=== PATIENT | male | born 1975 | race Caucasian/White ===

== ENCOUNTER 2020-02-28 12:35 | Outpatient (CLI) | payer OTHER, SELFPAY ==
--- NOTE | 2020-02-28 12:39 | USCV_ITS ---
Srinath Renteria Age: 44 Gender: M : 1975 Exam Date: 02/28/2020 12:50 Ordering Phys: Luke Rao MD Technologist: Cat Knox [place] [facility] [place]ication: TACH BP: 102 / 60 HR: 92 Rhythm: TACHYCARDIA Technical Quality: Fair MEASUREMENTS (Male / Female) Normal Values 2D ECHO LV Diastolic Diameter PLAX 2.7 cm 4.2 - 5.9 / 3.9 - 5.3 cm LV Systolic Diameter PLAX 1.4 cm LV Chamber Size 3.9 cm IVS Diastolic Thickness 1.6 cm 0.6 - 1.0 / 0.6 - 0.9 cm IVS Systolic Thickness 2.4 cm LVPW Diastolic Thickness 1.5 cm 0.6 - 1.0 / 0.6 - 0.9 cm LVPW Systolic Thickness 1.8 cm RV Chamber Size 2.7 cm LV Ejection Fraction 2D Teich 82.1 % LV Ejection Fraction MOD 2C 59.6 % LV Ejection Fraction 2C AL 60.7 % LA Width 3.0 cm LA Height 6.2 cm RA Width 3.0 cm RA Height 6.1 cm M-MODE LV Diastolic Diameter MM 5.3 cm 4.2 - 5.9 / 3.9 - 5.3 cm LV Systolic Diameter MM 3.5 cm LV Ejection Fraction MM Teich 63.4 % IVS Diastolic Thickness MM 1.3 cm 0.6 - 1.0 / 0.6 - 0.9 cm IVS Systolic Thickness MM 1.6 cm LVPW Diastolic Thickness MM 1.1 cm 0.6 - 1.0 / 0.6 - 0.9 cm LVPW Systolic Thickness MM 1.4 cm FINDINGS Left Ventricle Normal left ventricular cavity size. Normal left ventricular systolic function. Left ventricular ejection fraction is estimated at 60%. No diagnostic regional wall motion abnormalities. Right Ventricle Normal right ventricular size and systolic function. Right Atrium Normal right atrial size. Normal-sized inferior vena cava. Right atrial pressure estimated at 3 mmHg. Left Atrium Normal left atrial size. Mitral Valve Structurally normal mitral valve. Aortic Valve Aortic valve not well visualized. Tricuspid Valve Structurally normal tricuspid valve. Pulmonic Valve Pulmonary valve not visualized. Pericardium No pericardial effusion. Aorta Aorta not well visualized. CONCLUSIONS 1. This is a limited 2D study only. Patient was in atrial fibrillation with rapid ventricular response throughout the study. 2. Normal left ventricular cavity size. Normal left ventricular systolic function. Left ventricular ejection fraction is estimated at 60%. No diagnostic regional wall motion abnormalities. 3. Normal right ventricular size and systolic function. 4. Complete study is recommended once patient's heart rate is well controlled. Cindy Ortez MD (Electronically Signed) Final Date: 28 February 2020 14:04 S
== END 2020-02-28 12:36 | disposition home or self-care (01) ==
LOC: RAD 12:37
PROVIDERS: PCP Family Medicine; Visit Provider Family Medicine
DX: I48.91 Unspecified atrial fibrillation (principal); R00.0 Tachycardia, unspecified
CPT/HCPCS: 93308

== ENCOUNTER → 2020-03-11 14:58 | Outpatient (BNVA) | payer OTHER, SELFPAY | PROVIDERS: PCP Family Medicine; Visit Provider Internal Medicine Cardiovascular Disease | DX: I48.91 Unspecified atrial fibrillation (principal) | CPT/HCPCS: 84439; 84443; 84481 ==

== ENCOUNTER 2020-03-31 08:30 | Outpatient (CLI) | payer OTHER, SELFPAY ==
--- NOTE | 2020-03-31 08:34 | USCV_ITS ---
Srinath Renteria Age: 44 Gender: M : 1975 Exam Date: 03/31/2020 09:07 Ordering Phys: Cindy Ortez MD ([email or web address]) Technologist: Juanita Garner Exam Location: [facility] [place] Indication: atrial fibrillation BP: / HR: 56 Rhythm: Sinus Technical Quality: Adequate MEASUREMENTS (Male / Female) Normal Values 2D ECHO LV Diastolic Diameter PLAX 4.1 cm 4.2 - 5.9 / 3.9 - 5.3 cm LV Systolic Diameter PLAX 2.1 cm IVS Diastolic Thickness 1.3 cm 0.6 - 1.0 / 0.6 - 0.9 cm IVS Systolic Thickness 1.9 cm LVPW Diastolic Thickness 1.2 cm 0.6 - 1.0 / 0.6 - 0.9 cm LVPW Systolic Thickness 1.8 cm LVOT Diameter 2.1 cm LV Ejection Fraction 2D Teich 81.5 % LV Ejection Fraction MOD 2C 59.3 % LV Ejection Fraction 2C AL 58.5 % LA Diameter 4.0 cm LA Width 3.8 cm LA Height 6.2 cm RA Width 2.8 cm RA Height 5.5 cm M-MODE LV Diastolic Diameter MM 6.7 cm 4.2 - 5.9 / 3.9 - 5.3 cm LV Systolic Diameter MM 4.1 cm LV Ejection Fraction MM Teich 68.7 % IVS Diastolic Thickness MM 1.8 cm 0.6 - 1.0 / 0.6 - 0.9 cm IVS Systolic Thickness MM 1.8 cm LVPW Diastolic Thickness MM 1.5 cm 0.6 - 1.0 / 0.6 - 0.9 cm LVPW Systolic Thickness MM 2.9 cm Aortic Annulus Diameter 3.4 cm LA Ao Ratio MM 1.2 MV E Point Septal Separation 1.4 cm DOPPLER AV Peak Velocity 130.0 cm/s LVOT Peak Velocity 119.0 cm/s AV Area Cont Eq vti 3.5 cm squared AV Area Cont Eq pk 3.3 cm squared MV Peak Velocity 69.0 cm/s MV Area PHT 3.0 cm squared Mitral E to A Ratio 0.9 MV E' Velocity 5.0 cm/s Mitral E to MV E' Ratio 10.9 Mitral E to LV E' Lateral Ratio 11.5 Mitral E to LV E' Septal Ratio 10.5 TR Peak Velocity 97.0 cm/s TR Peak Gradient 3.8 mmHg Right Atrial Pressure 3.0 mmHg Pulmonary Artery Systolic Pressu 6.8 mmHg PV Peak Velocity 95.0 cm/s RV Acceleration Time 0.1 s FINDINGS Left Ventricle Normal left ventricular size, systolic function and wall thickness, with no regional wall motion abnormalities. Left ventricular ejection fraction is estimated at 65 %. Normal diastolic function. Right Ventricle Normal right ventricular size and systolic function. Right ventricular systolic pressure 6.8 mmHg. Right Atrium Normal right atrial size. Left Atrium Normal left atrial size. Mitral Valve Structurally normal mitral valve. No mitral valve stenosis. Trace mitral valve regurgitation. Aortic Valve Structurally normal trileaflet aortic valve. No aortic valve stenosis. No aortic valve regurgitation. Tricuspid Valve Structurally normal tricuspid valve. No tricuspid valve stenosis. Trace tricuspid valve regurgitation. Pulmonic Valve Structurally normal pulmonic valve. No pulmonary valve stenosis. No significant pulmonary valve regurgitation. Pericardium No pericardial effusion. Normal sized inferior vena cava. Aorta Normal size aortic root and proximal ascending aorta. CONCLUSIONS 1. Normal left ventricular size, systolic function and wall thickness, with no regional wall motion abnormalities. Left ventricular ejection fraction is estimated at 65 %. Normal diastolic function. 2. No significant valvular abnormality. 3. Normal pulmonary artery pressure. 4. No pericardial effusion. Cindy Ortez MD (Electronically Signed) Final Date: 31 March 2020 19:25 S
== END 2020-03-31 08:31 | disposition home or self-care (01) ==
LOC: US 08:32
PROVIDERS: PCP Family Medicine; Visit Provider Internal Medicine Cardiovascular Disease
DX: I48.91 Unspecified atrial fibrillation (principal)
CPT/HCPCS: 93306

== ENCOUNTER 2022-02-23 06:58 | Outpatient (CLI) | payer OTHER, SELFPAY ==
[2022-02-23 07:02] VITALS: BMI 41.5
--- NOTE | 2022-02-23 07:25 | ECG_ITS ---
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 Interpretive Statements NAME OF STUDY: EXERCISE SESTAMIBI STRESS TEST INDICATION: afib, PROCEDURE: The baseline electrocardiogram showed normal sinus rhythm with normal ST-Ts poor R wave progression. Nonspecific T wave changes in the inferior leads. At the baseline, the patient's blood pressure was 122/79 mm Hg with a heart rate of 88. The patient exercised for 8 minutes and 20 seconds on a standard Himanshu protocol. Patient attained a maximum heart rate of 172 beats per minute(100% of the maximum predicted heart rate) with a blood pressure at the peak exercise of 205/77 mm Hg. The EKG at the peak exercise revealed no significant changes. Patient did not have any chest pain or any significant arrhythmis with the exercise Sestamibi was injected 1 minute prior to the peak exercise During the recovery phase, there were no new changes. Blood pressure at the end of the recovery phase was 110/80 mm Hg with a heart rate of 101 per minute. CONCLUSION: 1. No significant EKG changes with the [treadmill exercise 2. No exercise-induced chest pain or cardiac arrhythmia. Hypertensive response to exercise 3. Fair exercise tolerance, attained a maximum of 10.2 METs 4. Sestamibi/Sestamibi perfusion results pending; see separate report. Electronically Signed On 02-25-2022 11:53:59 CDT by Slava Miguel M.D. [id number]
--- NOTE | 2022-02-23 07:26 | NMCV_ITS ---
NM ashley perf SPECT r/s* [id number] Srinath Renteria Age: 46 Gender: M : 1975 Exam Date: 02/23/2022 08:14 Ordering Phys: Luke Rao MD Technologist: BRIDGET Georges Exam Location: [facility] Indications: PAROXYSMAL A FIB STRESS TEST Please see separate stress test report in [facility] for full findings IMAGE PROTOCOL Rest/Stress 1 Exercise Day Radiopharmaceutical Dose (mCi) Administration Site Administered by Rest: Tc-99m 10.9 IV BRIDGET Trivedi Sestamibi Stress:Tc-99m 33.0 IV BRIDGET Trivedi Sestamibi Rest: 23-Feb-2022 60 Discovery 630 Stress: 23-Feb-2022 30 Discovery 630 Radiopharmaceutical was injected at 90 % maximum heart rate. Images obtained in supine and prone position. SPECT RESULTS Technical Quality: Excellent Raw Data Analysis: Normal Image Corrections: No attenuation or motion correction applied Summed Stress Score: 2 Summed Rest Score: 3 Summed Difference Score: 1 PERFUSION FINDINGS Small areas of slightly decreased tracer uptake were noted in the inferior and apical regions. Subtle area of reversibility was noted in the mid inferior region FUNCTIONAL RESULTS (calculated via Gated SPECT) Stress Image LV EF (%): 73 Stress EDV (mL):139 TID: 0.73 Stress ESV (mL):37 FUNCTIONAL FINDINGS: Segmental wall motion analysis revealing no gross wall motion abnormalities IMPRESSIONS 1. Myocardial perfusion imaging revealing small areas of slightly decreased tracer uptake in the inferior and apical regions with a subtle area reversibility in the mid inferior region, suggestive of ischemia in the distribution of the right coronary artery. However because the inconsistency of the supine imaging, the reliability of this finding is questionable. 2. Normal LV ejection fraction 73%. 3. Segmental wall motion analysis revealing no gross wall motion abnormalities 4. Normal LV volume No similar previous studies are available for comparison Dr Slava Miguel MD [facility] (Electronically Signed) Final Date: 23 February 2022 13:58 S
[2022-02-23 09:01] VITALS: BP 114/78; PULSE 103
== END 2022-02-23 06:59 | disposition home or self-care (01) ==
PROVIDERS: PCP Family Medicine; Visit Provider Family Medicine
DX: I48.0 Paroxysmal atrial fibrillation (principal)
CPT/HCPCS: 78452; 93017; A9500

== ENCOUNTER 2022-03-17 15:30 | Emergency (ER) | payer OTHER, SELFPAY ==
[2022-03-17] VITALS (11 sets, daily range): BP systolic 116–146; BP diastolic 72–90; PULSE 61–80; RESP 12–21; TEMP 36.6; O2SAT 92–97
--- NOTE | 2022-03-17 16:00 | ECG_ITS ---
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 Measurements Intervals [place] Rate: 71 P: 21 FL: 191 QRS: 18 QRSD: 93 T: 25 QT: 378 QTc: 411 Interpretive Statements SINUS RHYTHM No previous ECG available for comparison Electronically Signed On 03-17-2022 18:37:08 CDT by Cindy Ortez M.D. [id number]
--- NOTE | 2022-03-17 16:00 | XRR_ITS ---
PROCEDURE INFORMATION: Exam: XR Chest Exam date and time: 03/17/2022 4:08 PM Age: 46 years old Clinical indication: Pain; Angina pectoris; Additional info: Cp TECHNIQUE: Imaging protocol: Radiologic exam of the chest. Views: 1 view. COMPARISON: No relevant prior studies available. FINDINGS: Lungs: Shallow lung volumes. Slight horizontal stranding in each lung base. No consolidation. Pleural spaces: No pneumothorax or apparent pleural fluid. Heart/Mediastinum: Heart size within normal limits. Bones/joints: No suggestion of acute bony disease. XR/XR chest 1V portable [id number] IMPRESSION: Shallow inspiration and probable slight atelectasis in the lung bases.
--- NOTE | 2022-03-17 16:11 | W.ED.CHESTPA ---
HPI - Chest Pain General: Chief Complaint: Chest Pain Stated Complaint: chest pain Time Seen by Provider: 03/17/22 15:46 Source: patient and family (Spouse) Mode of arrival: ambulatory Limitations: no limitations History of Present Illness: This patient made his way to the emergency department accompanied by his spouse this afternoon because of chest pain symptoms. Currently has been having some central chest pain off and on for the last 2 weeks. He apparently had an umbilical hernia repaired about 10 days ago but the symptoms preceded that operation by several days. He states he has occasionally had episodes that last for short period of time since then but yesterday he had a prolonged period and today has had a prolonged period of symptoms. He states that there is central in nature he does vomit with the pain but it does not seem to immediately relieve the pain. No particular activity brings the pain on. He states that he has not been short of breath associated with the symptoms. He has no known history of cardiovascular disease. He states he since his surgery has been eating normally having normal bowel movements etc. He is not any recent cough chest wall injury skin rashes etc. He chews tobacco but is non-smoker. No significant history of gastroesophageal reflux etc. Patient does have a history of intermittent atrial fibrillation. He does not take any oral anticoagulants or antiplatelet agents. MD complaint: chest pain Pain location: substernal Pain radiation: none Quality: aching and heaviness Relieving factors: nothing Exacerbating factors: nothing Context: recent surgery Associated symptoms: Reports nausea and vomiting; Deny abdominal pain, dyspnea, fever(s), palpitations or syncope Risk Factors: Thoracic aortic dissection risk factors: none Review of Systems Const: Denies: fever(s) or chills Eyes: Denies: change in vision ENMT: Denies: odynophagia or nasal congestion Card: Denies: palpitations, edema, syncope or pre-syncope Resp: Denies: dyspnea, productive cough or non-productive cough GI: Reports: nausea and vomiting; Denies: abdominal pain, hematemesis, diarrhea or hematochezia : Denies: flank pain or difficulty urinating Musc: Denies: neck pain, back pain, extremity pain or extremity swelling Skin/Breast: Denies: rash Neuro: Denies: headache(s), numbness in extremities or weakness in extremities Psych: Denies: anxiety or depression Endo: Denies: polyuria or polydipsia PFSH ED PFSH: Family History Denies family history of Diabetes CAD (coronary artery disease) Hyperlipidemia Hypertension Stroke Social History Smoking and tobacco status: current every day smoker smokeless tobacco Alcohol intake: current Alcohol intake frequency: holidays/special occasions only Physical Exam Narrative: EXAM NARRATIVE: The patient makes good eye contact and answers all questions. He appears to be somewhat anxious and slightly diaphoretic Const: COMMON NORMALS: patient oriented x3 and alert GENERAL APPEARANCE: cooperative NUTRITIONAL APPEARANCE: overweight HENMT: COMMON NORMALS: normocephalic, atraumatic, Normal nasal mucous membranes and turbinates present and moist oral mucous membranes HEAD & SCALP: normocephalic and atraumatic NOSE: Normal nasal mucous membranes and turbinates present Eye: COMMON NORMALS: Equal, round and reactive pupils present, EOMs intact bilaterally, conjunctivae normal and no scleral icterus CONJUNCTIVA: Yes conjunctivae normal PUPIL: Yes Equal, round and reactive pupils present Neck/C-Spine: COMMON NORMALS: full ROM, no lymphadenopathy, no JVD and No carotid bruits Chest: COMMONS NORMALS: normal inspection of the chest OTHER: Palpation of his chest anteriorly reproduces no symptoms. He does have some discomfort with twisting and turning of his trunk. He also has some discomfort with AP compression of his chest. Resp: COMMON NORMALS: normal respiratory effort, No retractions, No use of accessory muscles and clear to auscultation bilaterally EFFORT & INSPECTION: Yes able to speak in complete sentences AUSCULTATION: clear to auscultation bilaterally Cardio: COMMON NORMALS: no JVD, regular rate, regular rhythm, No murmurs present (Cardio) and Peripheral pulses 2+ throughout RATE: regular rate RHYTHM: regular rhythm PERIPHERAL PULSES: Peripheral pulses 2+ throughout GI: OTHER: He has a protuberant abdomen abdomen. He does have some ecchymosis surrounding his periumbilical region with no evidence of drainage discharge or redness from his supraumbilical surgical scar. He has minimal epigastric tenderness to palpation. No rebound or guarding. No masses. : COMMON NORMALS: Yes no CVA tenderness BLADDER/KIDNEY EXAM: Yes no CVA tenderness Back/Pelvis: COMMON NORMALS: no CVA tenderness, thoracic and lumbar spine normal to inspection, no thoracic nor lumbar tenderness and thoraco-lumbar ROM normal Extremity: COMMON NORMALS: normal to inspection, full ROM, no clubbing, cyanosis or edema, no calf tenderness and no pedal edema Neuro: COMMON NORMALS: patient oriented x3, moves all extremities, no focal motor deficits and no sensory deficits noted SENSORIUM/ORIENTATION: Yes alert CRANIAL NERVES: Yes CN normal except as noted Course Reevaluation(s): Reevaluation #1: EKG is reassuring. Initial troponin is also reassuring given the duration of symptoms. Of note is his total bili and transaminases were elevated. This may be occult biliary tract disease would not proceed with a gallbladder ultrasound. Time: 16:59 Reevaluation #2: Patient is at baseline; pain-free drinking fluids. No new or focal findings repeat examination. Discussed findings and likely etiology of symptoms. Time: 19:00 Vital Signs: Vital signs: Vital Signs Temperature 97.8 F 03/17/22 15:39 Pulse Rate 61 03/17/22 18:30 Respiratory Rate 13 03/17/22 18:30 Blood Pressure 135/76 03/17/22 18:30 Pulse Oximetry 96 03/17/22 18:30 Oxygen Delivery Me thod 03/17/22 16:42 Oxygen Flow Rate 3 03/17/22 16:42 MDM - Chest Pain Medical Decision Making Patient presented to the emergency department with what he described as chest pain with associated diaphoresis. He states the pain was waxing and waning but had been more persistent over the past day or so. Usual EKGs are reassuring. Serial troponins and serial EKGs were also reassuring. Chest x-ray was unremarkable. Gallbladder ultrasound was obtained which revealed cholelithiasis without any evidence of common bile duct enlargement of significance, stones in the duct, wall thickening, pericolic fluid. He is afebrile and has no leukocytosis. He does have elevation in transaminases and slight elevation in total bilirubin but at this time does not have any evidence of acute cholecystitis, ascending cholangitis or other worrisome condition. He is recently seen when the general surgeons on staff Dr. Smith and prefers to follow-up with him. We will have him talk with Dr. Smith regarding potential outpatient evaluation for cholecystectomy. Medical Records I reviewed the patient's medical records. Lab Data I reviewed the patient's lab results. : 03/17/22 16:14 03/17/22 16:14 Radiology Impressions Chest X-Ray 03/17/22 16:00 IMPRESSION: Shallow inspiration and probable slight atelectasis in the lung bases. Gallbladder Ultrasound 03/17/22 16:58 IMPRESSION: 1. Cholelithiasis. Minimal dilatation of the CBD. 2. No obvious liver disease. Unremarkable right kidney and pancreatic neck. Laboratory Results WBC 9.9 10^3/uL (4.0-10.0) 03/17/22 16:14 RBC 6.37 10^6/uL (4.1-5.3) H 03/17/22 16:14 Hgb 18.1 g/dL (11.7-16.6) H 03/17/22 16:14 Hct 56.3 % (42.0-52.0) H 03/17/22 16:14 MCV 88.4 fl (80-94) 03/17/22 16:14 MCH 28.4 pg (28.0-34.0) 03/17/22 16:14 MCHC 32.1 g/dL (30.0-36.0) 03/17/22 16:14 RDW 13.4 % (12.1-15.1) 03/17/22 16:14 Plt Count 287 10^3/cmm (130-400) 03/17/22 16:14 MPV 9.5 fL (7.4-10.4) 03/17/22 16:14 Neut % (Auto) 73.0 % 03/17/22 16:14 Lymph % (Auto) 16.6 % 03/17/22 16:14 [place] % (Auto) 8.0 % 03/17/22 16:14 Eos % (Auto) 1.5 % 03/17/22 16:14 Baso % (Auto) 0.3 % 03/17/22 16:14 Neut # (Auto) 7.22 10^3/uL (1.8-7.7) 03/17/22 16:14 Lymph # (Auto) 1.6 10^3/uL (0.8-4.8) 03/17/22 16:14 [place] # (Auto) 0.8 10^3/uL (0.2-0.9) 03/17/22 16:14 Eos # (Auto) 0.2 10^3/uL (0.0-0.8) 03/17/22 16:14 Baso # (Auto) 0.0 10^3/uL (0.0-0.1) 03/17/22 16:14 Nucleated RBC % (auto) 0 % 03/17/22 16:14 Nucleated RBCs # 0.0 /100WBC 03/17/22 16:14 Sodium 135 mmol/L (136-145) L 03/17/22 16:14 Potassium 4.0 mmol/L (3.5-5.1) 03/17/22 16:14 Chloride 101 mmol/L (98-107) 03/17/22 16:14 Carbon Dioxide 19 mmol/L (22-29) L 03/17/22 16:14 Anion Gap 19.0 (5-19) 03/17/22 16:14 BUN 17 mg/dL (6-20) 03/17/22 16:14 Creatinine 0.9 mg/dL (0.7-1.2) 03/17/22 16:14 GFR Calculation 90.1 mL/min (90-130) 03/17/22 16:14 Glucose 136 mg/dL (65-115) H 03/17/22 16:14 Calculated Osmolality 284 mOsm/kg (285-295) L 03/17/22 16:14 Calcium 9.6 mg/dL (8.5-10.5) 03/17/22 16:14 Total Bilirubin 2.2 mg/dL (0.15-1.2) H 03/17/22 16:14 AST 196 U/L (0-40) H 03/17/22 16:14 ALT 394 U/L (0-41) H 03/17/22 16:14 Alkaline Phosphatase 342 IU/L (40-130) H 03/17/22 16:14 Troponin T Baseline 6 ng/L (0-15) 03/17/22 16:14 Troponin T 120 Minute 6.00 ng/L (0-15) 03/17/22 18:06 Delta Troponin T 0 ABS# (0-10) 03/17/22 18:06 Total Protein 7.7 g/dL (6.6-8.7) 03/17/22 16:14 Albumin 4.3 g/dL (3.5-5.2) 03/17/22 16:14 Globulin 3.4 g/dL (1.3-4.6) 03/17/22 16:14 EKG Data EKG 1: I personally reviewed and interpreted this EKG as follows: Interpretation: Resting EKG obtained after patient was in the room revealed ventricular rate of 63 bpm. Normal intervals, normal axis. Normal QTc interval. No acute ST-T wave changes noted. EKG 2: I personally reviewed and interpreted this EKG as follows: EKG interpretation time: 18:37 Interpretation: Second EKG this visit reveals a ventricular rate of 59 bpm. Normal intervals, normal axis, no acute ST-T wave changes noted. Consistent with borderline sinus bradycardia. Discharge Plan Discharge Patient Disposition: Home Clinical Impression: Biliary colic, Cholelithiasis Condition: Stable Prescriptions: New Levsin 0.125 mg tablet 0.125 mg PO TID PRN (Reason: dyspepsia) Qty: 20 0RF No Action flecainide 50 mg tablet 50 mg PO .COMPLEX Qty: 30 3RF Rx Instructions: 50 mg PO Take 2 tabs with an episode and may repeat 1 tab 30-60 min later; metoprolol tartrate 25 mg tablet 12.5 mg PO .COMPLEX Qty: 30 1RF Rx Instructions: 12.5 mg PO Take 1/2 to 1 tab as needed for HR>100 bpm; Discharge Orders: Discharge ED (Routine); Ordered 03/17/22 Ordered By: Deonte Lemon Referrals: Sumeet Smith MD [Physician] - 4-7 days (biliary colic +US) Luke Rao MD [Primary Care Provider] - Patient Instructions: Abdominal Pain (ED), Opioid Safety Coding Level of Care Code ED Screen Cleaner for Chg Fwd Exam Comprehensive
[2022-03-17] MEDS: ondansetron 2 mg/ML SDV 2 mL 4 MG IVP (16:20)
[2022-03-17] MEDS: aspirin 81 mg Chew Tablet 324 MG PO (16:22)
[2022-03-17] MEDS: morphine 4 mg/mL SDV 1 mL IVP (16:24)
[2022-03-17 16:26] LABS: Basophils % 0.3 %; Eosinophils # 0.2 10^3/uL (0.0-0.8); Eosinophils % 1.5 %; Hematocrit 56.3 % (42.0-52.0); Hemoglobin 18.1 g/dL (11.7-16.6); Lymphocytes # 1.6 10^3/uL (0.8-4.8); Lymphocytes % 16.6 %; Mean Corpuscular HGB Conc 32.1 g/dL (30.0-36.0); Mean Corpuscular Hemoglobin 28.4 pg (28.0-34.0); Mean Corpuscular Volume 88.4 fl (80-94); Mean Platelet Volume 9.5 fL (7.4-10.4); Monocytes # 0.8 10^3/uL (0.2-0.9); Neutrophils # 7.22 10^3/uL (1.8-7.7); Nucleated Red Blood Cells % 0 %; Platelet Count 287 10^3/cmm (130-400); Red Blood Count 6.37 10^6/uL (4.1-5.3); Red Cell Distribution Width 13.4 % (12.1-15.1); White Blood Count 9.9 10^3/uL (4.0-10.0)
[2022-03-17 16:50] LABS: Alanine Aminotransferase 394 U/L (0-41); Albumin Level 4.3 g/dL (3.5-5.2); Alkaline Phosphatase 342 IU/L (40-130); Aspartate Amino Transferase 196 U/L (0-40); Blood Urea Nitrogen 17 mg/dL (6-20); Calcium 9.6 mg/dL (8.5-10.5); Carbon Dioxide 19 mmol/L (22-29); Chloride 101 mmol/L (98-107); Globulin 3.4 g/dL (1.3-4.6); Glomerular Filtration Rate 90.1 mL/min (90-130); Glucose 136 mg/dL (65-115); Osmolality Calculated 284 mOsm/kg (285-295); Sodium 135 mmol/L (136-145); Total Bilirubin 2.2 mg/dL (0.15-1.2); Total Protein 7.7 g/dL (6.6-8.7)
[2022-03-17 16:52] LABS: Troponin(5th) Baseline 6 ng/L (0-15)
--- NOTE | 2022-03-17 16:58 | USR_ITS ---
PROCEDURE INFORMATION: Exam: US Abdomen, Limited; Right Upper Quadrant Exam date and time: 03/17/2022 5:18 PM Age: 46 years old Clinical indication: Pain; Other: Chest; Additional info: Pain and elevation in bili, alk phos TECHNIQUE: Imaging protocol: Real time ultrasound of the abdomen with image documentation. Limited exam focused on the right upper quadrant. COMPARISON: No relevant prior studies available. FINDINGS: Liver: Liver visualization not optimal related to the patient's body habitus, but no liver enlargement or evident mass. No definite decreased penetrability of the liver indicating a low likelihood of hepatic steatosis. Normal blood flow in the main portal vein. Gallbladder: Multiple dependent shadowing stones in the gallbladder. Anterior gallbladder wall thickness probably smaller than the measured 2.9 mm. Biliary ducts: CBD 6.8 mm. Pancreas: Pancreatic neck within normal limits in size and echogenicity. Obscuration of the rest of the pancreas by bowel gas. Right kidney: Right kidney approximately 10.3 x 5.9 x 5.6 cm with no hydronephrosis or apparent mass or shadowing stone. US/US gall bladder [id number] IMPRESSION: 1. Cholelithiasis. Minimal dilatation of the CBD. 2. No obvious liver disease. Unremarkable right kidney and pancreatic neck.
--- NOTE | 2022-03-17 18:13 | ECG_ITS ---
[facility] Test Date: 2022-03-17 Pat Name: Srinath Renteria Department: Room: Gender: Male Head [employer]: : 1975 Requested By: Deonte Lemon Order Number: [id number] Kemp MD: Cindy Ortez M.D. Measurements Intervals [place] Rate: 59 P: 54 SD: 208 QRS: 33 QRSD: 91 T: 30 QT: 415 QTc: 413 Interpretive Statements SINUS BRADYCARDIA Compared to ECG 03/17/2022 15:39:01 Sinus rhythm no longer present Electronically Signed On 03-17-2022 18:53:04 CDT by Cindy Ortez M.D. [id number]
[2022-03-17 18:59] LABS: Troponin 5 2HR Delta 0 ABS# (0-10)
--- NOTE | 2022-03-17 19:07 | PC.NURSE ---
Report given to c d reactor operator RN
[2022-03-17] MEDS: hyoscyamine ODT 0.125 mg Tablet 0.25 MG PO (19:20)
--- NOTE | 2022-03-17 22:00 | ECG_ITS ---
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 Measurements Intervals [place] Rate: 63 P: 16 IN: 198 QRS: 17 QRSD: 98 T: 31 QT: 419 QTc: 432 Interpretive Statements SINUS RHYTHM Compared to ECG 03/17/2022 15:39:01 No significant changes Electronically Signed On 03-17-2022 19:06:56 CDT by Cindy Ortez M.D. [id number] f
== END 2022-03-17 19:21 | disposition home or self-care (01) ==
PROVIDERS: Emergency Provider Emergency Medicine; PCP Family Medicine
DX: K80.20 Calculus of gallbladder without cholecystitis without obstruction (principal); F17.210 Nicotine dependence, cigarettes, uncomplicated
CPT/HCPCS: 71045; 76705; 80053; 84484; 85025; 93005; 96374; 96375; 99285; J2270; J2405

== ENCOUNTER 2022-04-12 12:00 | Outpatient (CLI) | payer OTHER, SELFPAY | END 2022-04-12 12:01 | disposition home or self-care (01) | LOC: SLEEP 04-18 07:32 | PROVIDERS: PCP Family Medicine; Visit Provider Family Medicine | DX: G47.10 Hypersomnia, unspecified (principal) | CPT/HCPCS: G0399 ==

== ENCOUNTER 2023-11-23 22:48 | Emergency (ER) | payer OTHER, SELFPAY ==
[2023-11-23 23:00] VITALS: BP 161/102; PULSE 65; RESP 16; TEMP 36.6; O2SAT 97
[2023-11-24] VITALS (11 sets, daily range): BP systolic 139–177; BP diastolic 78–113; PULSE 56–80; RESP 14–16; O2SAT 92–97
[2023-11-24] MEDS: sodium chloride 0.9% 1,000 ML 999 ML IV (00:14)
[2023-11-24] MEDS: ondansetron 2 mg/ML SDV 2 mL 4 MG IM (00:15)
[2023-11-24 00:19] LABS: Alanine Aminotransferase 122 U/L (0-41); Albumin Level 4.3 g/dL (3.5-5.2); Alkaline Phosphatase 118 U/L (40-130); Anion Gap 20.1 (5-19); Aspartate Amino Transferase 87 U/L (0-40); Blood Urea Nitrogen 13 mg/dL (6-20); Calcium 9.4 mg/dL (8.5-10.5); Carbon Dioxide 18 mmol/L (22-29); Chloride 104 mmol/L (98-107); Creatinine Clr Calc Pharmacy 137.1422; Globulin 3.3 g/dL (1.3-4.6); Glomerular Filtration Rate 89.3 mL/min (90-130); Glucose 127 mg/dL (65-115); Osmolality Calculated 288 mOsm/kg (285-295); Potassium 4.1 mmol/L (3.5-5.1); Sodium 138 mmol/L (136-145); Total Bilirubin 1.6 mg/dL (0.15-1.2); Total Protein 7.6 g/dL (6.6-8.7)
[2023-11-24 00:20] LABS: Lactic Sepsis W/Reflex 1.1 mmol/L (0.5-2.2)
[2023-11-24 00:31] LABS: Lipase 435 U/L (13-60)
[2023-11-24 00:36] LABS: Basophils % 0.2 %; Hematocrit 56.5 % (37-53); Lymphocytes # 0.7 10^3/uL (0.8-4.8); Lymphocytes % 6.9 %; Mean Corpuscular HGB Conc 33.6 g/dL (30-55); Mean Corpuscular Volume 86.1 fl (82-101); Mean Platelet Volume 9.7 fL (7.4-10.4); Monocytes # 0.4 10^3/uL (0.2-0.9); Monocytes % 4.1 %; Neutrophils # 8.94 10^3/uL (1.8-7.7); Neutrophils % 88.3 %; Nucleated Red Blood Cells % 0 %; Platelet Count 241 10^3/cmm (157-399); Red Blood Count 6.56 10^6/uL (3.85-5.65); Red Cell Distribution Width 12.9 % (12.1-15.1); White Blood Count 10.13 10^3/uL (3.29-11.43)
--- NOTE | 2023-11-24 00:43 | CTR_ITS ---
PROCEDURE INFORMATION: Exam: CT Abdomen And Pelvis With Contrast Exam date and time: 11/24/2023 1:02 AM Age: 48 years old Clinical indication: Abdominal pain; Acute; Additional info: Abd pain TECHNIQUE: Imaging protocol: Computed tomography of the abdomen and pelvis with contrast. Radiation optimization: All CT scans at this facility use at least one of these dose optimization techniques: automated exposure control; mA and/or kV adjustment per patient size (includes targeted exams where dose is matched to clinical indication); or iterative reconstruction. Contrast material: OMNI 350; Contrast volume: 100 ml; Contrast route: INTRAVENOUS (IV); COMPARISON: US gall bladder [id number] 03/17/2022 5:18 PM RADIATION DOSE METRICS: Total DLP (mGy-cm): 1221.9 FINDINGS: Liver: Normal. No mass. Gallbladder and bile ducts: Normal. No calcified stones. No ductal dilation. Pancreas: Extensive Lisa pancreatic fat stranding and non loculated fluid consistent with acute pancreatitis. No pancreatic ductal dilatation or pancreatic mass identified. No pseudocyst. Spleen: Normal. No splenomegaly. Adrenal glands: Normal. No mass. Kidneys and ureters: Normal. No hydronephrosis. Stomach and bowel: Unremarkable. No obstruction. No mucosal thickening. Appendix: No evidence of appendicitis. Intraperitoneal space: Unremarkable. No free air. No significant fluid collection. Vasculature: Unremarkable. No abdominal aortic aneurysm. Lymph nodes: Unremarkable. No enlarged lymph nodes. Urinary bladder: Unremarkable as visualized. Reproductive: Unremarkable as visualized. Bones/joints: Unremarkable. No acute fracture. Soft tissues: There is a fat containing umbilical hernia measuring up to 26 mm at the neck. CT/CT abdomen pelvis w con* [id number] IMPRESSION: 1. Extensive Lisa pancreatic fat stranding and non loculated fluid consistent with acute pancreatitis. 2. No pancreatic ductal dilatation or pancreatic mass identified. No pseudocyst.
[2023-11-24] MEDS: morphine 4 mg/mL SDV 1 mL IVP (00:48)
--- NOTE | 2023-11-24 01:00 | USR_ITS ---
PROCEDURE INFORMATION: Exam: US Abdomen, Limited; Right Upper Quadrant Exam date and time: 11/24/2023 1:15 AM Age: 48 years old Clinical indication: Abdominal pain; Generalized; Patient HX: Patient had prior gbus 03/17/2022 = multiple, mobile, shadowing gallstones, with cbd = 6.8mm; Additional info: Ruq abd pain TECHNIQUE: Imaging protocol: Real time ultrasound of the abdomen with image documentation. Limited exam focused on the right upper quadrant. COMPARISON: US gall bladder [id number] 03/17/2022 5:18 PM FINDINGS: Liver: Normal. No masses. Gallbladder: Multiple shadowing stones in the gallbladder measuring up to 10 mm. Gallbladder wall thickening measuring up to 6 mm. A sonographic Bettencourt's sign was elicited during the examination. Biliary ducts: The common bile duct is enlarged measuring up to 11 mm in diameter. Pancreas: Visualized pancreas is unremarkable. Right kidney: The right kidney measures up to 11.2 cm in length with no hydronephrosis or renal calculus. Aorta: Visualized aorta is unremarkable. Inferior vena cava: The IVC is within normal limits. Portal venous: The main portal vein is normal in size. US/US gall bladder [id number] IMPRESSION: Acute cholecystitis.
[2023-11-24] MEDS: iohexol 350 mg/mL 500 mL Btl (per mL) IV (01:05)
--- NOTE | 2023-11-24 01:18 | ED_ITS ---
Documented by User: Leonardo Carvajal MD 11/24/23 04:26 HPI - Abdominal Pain 2 General: Chief Complaint: Abdominal Pain Stated Complaint: left abd pain n/v 24hr Time Seen by Provider: 11/24/23 00:00 History of Present Illness: 48-year-old male presents to the emergen cy department this morning with complaints of epigastric abdominal pain that he states is a 10 out of 10 with several episodes of vomiting over the previous 24 hours. He states 2 years ago he was told that he had gallstones in his gallbladder and has not had his gallbladder taken out. He states this morning the pain occurred after eating a sausage biscuit and has continued throughout the day. He states he did eat tater tots prior to the pain becoming much worse and causing him to come to the emergency department. He states that pushing on the area makes the pain much worse and nothing seems to make the pain better Associated Symptoms: Reports nausea and vomiting Review of Systems 2 General: Reports: 10 or more systems reviewed and unremarkable except in HPI and below GI: Reports: abdominal pain, nausea and vomiting [facility] ED 2 PFSH: Family History Denies family history of Diabetes CAD (coronary artery disease) Hyperlipidemia Hypertension Stroke Social History Smoking and tobacco/nicotine status: current every day tobacco/nicotine user smokeless tobacco Alcohol intake: current Alcohol intake frequency: holidays/special occasions only Substance/Drug Use: never Physical Exam 2 Narrative: EXAM NARRATIVE: General: Alert, mild distress, uncomfortable, in obvious pain. Skin: Warm, dry, Intact. Head: Normocephalic, atraumatic. Neck: Supple, trachea midline. Eye: Extraocular movements are intact. PERRLA Ears, nose, mouth and throat: mucosa moist. Cardiovascular: Regular, Normal peripheral perfusion. Respiratory: Lungs are clear to auscultation, respirations are non-labored, breath sounds are equal, Symmetrical chest wall expansion. Gastrointestinal: Soft, tenderness to palpation to the epigastric and right upper quadrant., Non distended, Normal bowel sounds. Musculoskeletal: Normal ROM, no deformity. Neurological: Alert and oriented, No focal neurological deficit observed. Psychiatric: Cooperative, appropriate mood & affect. Course 2 ED course: 03: [address] Shine and disc ussed the patient's case and he has requested that we keep the patient in the emergency department until we receive the results back from his MRCP. Vital Signs: Vital signs: Vital Signs Temperature 97.9 F 11/23/23 23:00 Pulse Rate 80 11/24/23 15:00 Respiratory Rate 16 11/24/23 15:00 Blood Pressure 150/78 11/24/23 15:00 Pulse Oximetry 96 11/24/23 15:00 Oxygen Delivery Me thod Room Air 11/24/23 15:00 MDM - Abdominal Pain Medical Decision Making Physical exam completed and documented, I will obtain laboratory evaluation to include a CBC, CMP, lipase, urinalysis, and a CT scan of the patient's abdomen pelvis to evaluate for possible differential diagnosis of bowel obstruction, incarcerated hernia, abdominal wall strain, abdominal wall hematoma, constipation, pancreatitis, cholelithiasis, choledocholithiasis. I have contacted Dr. Shine the general surgeon and we are currently awaiting for the results of the MRCP. If there are no obstructing bile duct stones Dr. Shine stated he would except the patient for admission but would like to be called back after the results of the MRCP are completed. Patient did receive morphine and Dilaudid for pain medication as well as Zosyn and he was made nothing by mouth and provided IV hydration via lactated Ringer's. I have discussed the patient's case with the on-coming physician <Dr. Oconnor > and they have assumed care of the patient. We have discussed the current lab/radiographic results that have been resulted and the pending tests. Medical Records I reviewed the patient's medical records. Lab Data I reviewed the patient's lab results. 11/24/23 00:05 11/23/23 23:50 Labs/Radiology: Radiology Impressions Abdomen/Pelvis CT 11/24/23 00:43 IMPRESSION: 1. Extensive Lisa pancreatic fat stranding and non loculated fluid consistent with acute pancreatitis. 2. No pancreatic ductal dilatation or pancreatic mass identified. No pseudocyst. Gallbladder Ultrasound 11/24/23 01:00 IMPRESSION: Acute cholecystitis. Laboratory Results WBC 10.13 10^3/uL (3.29-11.43) 11/24/23 00:05 Corrected WBC Cancelled 11/23/23 23:50 RBC 6.56 10^6/uL (3.85-5.65) H 11/24/23 00:05 Hgb 19.00 g/dL (11.27-16.99) H 11/24/23 00:05 Hct 56.5 % (37-53) H 11/24/23 00:05 MCV 86.1 fl (82-101) 11/24/23 00:05 MCH 29.0 pg (27-33) 11/24/23 00:05 MCHC 33.6 g/dL (30-55) 11/24/23 00:05 RDW 12.9 % (12.1-15.1) 11/24/23 00:05 Plt Count 241 10^3/cmm (157-399) 11/24/23 00:05 MPV 9.7 fL (7.4-10.4) 11/24/23 00:05 Gran % Cancelled 11/23/23 23:50 Neut % (Auto) 88.3 % 11/24/23 00:05 Lymph % (Auto) 6.9 % 11/24/23 00:05 [place] % (Auto) 4.1 % 11/24/23 00:05 Eos % (Auto) 0.0 % 11/24/23 00:05 Baso % (Auto) 0.2 % 11/24/23 00:05 Neut # (Auto) 8.94 10^3/uL (1.8-7.7) H 11/24/23 00:05 Lymph # (Auto) 0.7 10^3/uL (0.8-4.8) L 11/24/23 00:05 [place] # (Auto) 0.4 10^3/uL (0.2-0.9) 11/24/23 00:05 Eos # (Auto) 0.0 10^3/uL (0.0-0.8) 11/24/23 00:05 Baso # (Auto) 0.0 10^3/uL (0.0-0.1) 11/24/23 00:05 Absolute Gran (auto) Cancelled 11/23/23 23:50 Nucleated RBC % (auto) 0 % 11/24/23 00:05 Nucleated RBCs # 0.0 /100WBC 11/24/23 00:05 Sodium 138 mmol/L (136-145) 11/23/23 23:50 Potassium 4.1 mmol/L (3.5-5.1) 11/23/23 23:50 Chloride 104 mmol/L (98-107) 11/23/23 23:50 Carbon Dioxide 18 mmol/L (22-29) L 11/23/23 23:50 Anion Gap 20.1 (5-19) H 11/23/23 23:50 BUN 13 mg/dL (6-20) 11/23/23 23:50 Creatinine 0.9 mg/dL (0.7-1.2) 11/23/23 23:50 GFR Calculation 89.3 mL/min (90-130) L 11/23/23 23:50 Glucose 127 mg/dL (65-115) H 11/23/23 23:50 Calculated Osmolality 288 mOsm/kg (285-295) 11/23/23 23:50 Lactic Acid 1.1 mmol/L (0.5-2.2) 11/23/23 23:50 Calcium 9.4 mg/dL (8.5-10.5) 11/23/23 23:50 Total Bilirubin 1.6 mg/dL (0.15-1.2) H 11/23/23 23:50 AST 87 U/L (0-40) H 11/23/23 23:50 ALT 122 U/L (0-41) H 11/23/23 23:50 Alkaline Phosphatase 118 U/L (40-130) 11/23/23 23:50 Total Protein 7.6 g/dL (6.6-8.7) 11/23/23 23:50 Albumin 4.3 g/dL (3.5-5.2) 11/23/23 23:50 Globulin 3.3 g/dL (1.3-4.6) 11/23/23 23:50 Lipase 435 U/L (13-60) H 11/23/23 23:50 Procalcitonin 0.30 ng/mL (0-0.5) 11/23/23 23:50 Urine Color Yellow (Yellow) 11/24/23 12:17 Urine Appearance Clear (CLEAR) 11/24/23 12:17 Urine pH 5 (5-7) 11/24/23 12:17 Ur Specific [place] 1.020 (1.005-1.030) 11/24/23 12:17 Urine Protein 1+ (Negative) H 11/24/23 12:17 Urine Glucose (UA) Norm (Normal) 11/24/23 12:17 Urine Ketones 2+ (Negative) H 11/24/23 12:17 Urine Blood Neg (Negative) 11/24/23 12:17 Urine Nitrate Negative (Negative) 11/24/23 12:17 Urine Bilirubin 1+ (Negative) H 11/24/23 12:17 Urine Urobilinogen 1 mg/dL (Negative) H 11/24/23 12:17 Ur Leukocyte Esterase Negative (Negative) 11/24/23 12:17 Urine RBC 0-4 /hpf (0-2) H 11/24/23 12:17 Urine WBC None /hpf (0-5) 11/24/23 12:17 Ur Squamous Epith Cells None /hpf (0-5) 11/24/23 12:17 Amorphous Sediment Not Reportable 11/24/23 12:17 Urine Bacteria None /hpf (NONE) 11/24/23 12:17 Urine Mucus Trace /hpf 11/24/23 12:17 All radiology interpretation(s) finalized by discharge Discharge Plan Discharge Patient Disposition: Xfer Short-Term Hosp Clinical Impression: Cholelithiasis, Acute pancreatitis, Acute cholecystitis Condition: Stable Prescriptions: No Action flecainide 50 mg tablet See Rx Instructions .ROUTE .COMPLEX Rx Instructions: Take 2 tabs po with an episode and may repeat 1 tab 30-60 min later as needed metoprolol tartrate 25 mg tablet See Rx Instructions .ROUTE .COMPLEX Rx Instructions: Take 1/2 tab (12.5mg) to 1 tab (25mg) by mouth as needed for HR>100 bpm Referrals: Luke Rao MD [Primary Care Provider] - Coding Level of Care Code ED Science Teacher for Chg Fwd Documented by User: Blake Oconnor DO 11/24/23 15:46 HPI - Abdominal Pain 2 General: Chief Complaint: Abdominal Pain Stated Complaint: left abd pain n/v 24hr Time Seen by Provider: 11/24/23 00:00 [facility] ED 2 PFS: Family History Denies family history of Diabetes CAD (coronary artery disease) Hyperlipidemia Hypertension Stroke Social History Smoking and tobacco/nicotine status: current every day tobacco/nicotine user smokeless tobacco Alcohol intake: current Alcohol intake frequency: holidays/special occasions only Substance/Drug Use: never Course 2 Vital Signs: Vital signs: Vital Signs Temperature 97.9 F 11/23/23 23:00 Pulse Rate 80 11/24/23 15:00 Respiratory Rate 16 11/24/23 15:00 Blood Pressure 150/78 11/24/23 15:00 Pulse Oximetry 96 11/24/23 15:00 Oxygen Delivery Me thod Room Air 11/24/23 15:00 MDM - Abdominal Pain Medical Decision Making Physical exam completed and documented, I will obtain laboratory evaluation to include a CBC, CMP, lipase, urinalysis, and a CT scan of the patient's abdomen pelvis to evaluate for possible differential diagnosis of bowel obstruction, incarcerated hernia, abdominal wall strain, abdominal wall hematoma, constipation, pancreatitis, cholelithiasis, choledocholithiasis. I have contacted Dr. Shine the general surgeon and we are currently awaiting for the results of the MRCP. If there are no obstructing bile duct stones Dr. Shine stated he would except the patient for admission but would like to be called back after the results of the MRCP are completed. Patient did receive morphine and Dilaudid for pain medication as well as Zosyn and he was made nothing by mouth and provided IV hydration via lactated Ringer's. I have discussed the patient's case with the on-coming physician <Dr. Oconnor > and they have assumed care of the patient. We have discussed the current lab/radiographic results that have been resulted and the pending tests. MRCP resulted in probable multiple stones in the common bile duct, the patient needs an ERCP, [facility] was called to have GI and ERCP capability but they will not know the bed situation till 11, [facility] was called they do not have ERCP capability at this time, [facility] was called that they do not have ERCP as well. We will call back [facility] at 11 and see their bed situation. [facility] was called back multiple times and after multiple delays the eventually told us he had no bed., [facility] was called Dr. Hernandez said he can do an ERCP tomorrow, Dr. Harris said he can take the gallbladder out tomorrow and Dr. Barraza the hospitalist will be the accepting physician. Lab Data 11/24/23 00:05 11/23/23 23:50 Labs/Radiology: Radiology Impressions Abdomen/Pelvis CT 11/24/23 00:43 IMPRESSION: 1. Extensive Lisa pancreatic fat stranding and non loculated fluid consistent with acute pancreatitis. 2. No pancreatic ductal dilatation or pancreatic mass identified. No pseudocyst. Gallbladder Ultrasound 11/24/23 01:00 IMPRESSION: Acute cholecystitis. Laboratory Results WBC 10.13 10^3/uL (3.29-11.43) 11/24/23 00:05 Corrected WBC Cancelled 11/23/23 23:50 RBC 6.56 10^6/uL (3.85-5.65) H 11/24/23 00:05 Hgb 19.00 g/dL (11.27-16.99) H 11/24/23 00:05 Hct 56.5 % (37-53) H 11/24/23 00:05 MCV 86.1 fl (82-101) 11/24/23 00:05 MCH 29.0 pg (27-33) 11/24/23 00:05 MCHC 33.6 g/dL (30-55) 11/24/23 00:05 RDW 12.9 % (12.1-15.1) 11/24/23 00:05 Plt Count 241 10^3/cmm (157-399) 11/24/23 00:05 MPV 9.7 fL (7.4-10.4) 11/24/23 00:05 Gran % Cancelled 11/23/23 23:50 Neut % (Auto) 88.3 % 11/24/23 00:05 Lymph % (Auto) 6.9 % 11/24/23 00:05 [place] % (Auto) 4.1 % 11/24/23 00:05 Eos % (Auto) 0.0 % 11/24/23 00:05 Baso % (Auto) 0.2 % 11/24/23 00:05 Neut # (Auto) 8.94 10^3/uL (1.8-7.7) H 11/24/23 00:05 Lymph # (Auto) 0.7 10^3/uL (0.8-4.8) L 11/24/23 00:05 [place] # (Auto) 0.4 10^3/uL (0.2-0.9) 11/24/23 00:05 Eos # (Auto) 0.0 10^3/uL (0.0-0.8) 11/24/23 00:05 Baso # (Auto) 0.0 10^3/uL (0.0-0.1) 11/24/23 00:05 Absolute Gran (auto) Cancelled 11/23/23 23:50 Nucleated RBC % (auto) 0 % 11/24/23 00:05 Nucleated RBCs # 0.0 /100WBC 11/24/23 00:05 Sodium 138 mmol/L (136-145) 11/23/23 23:50 Potassium 4.1 mmol/L (3.5-5.1) 11/23/23 23:50 Chloride 104 mmol/L (98-107) 11/23/23 23:50 Carbon Dioxide 18 mmol/L (22-29) L 11/23/23 23:50 Anion Gap 20.1 (5-19) H 11/23/23 23:50 BUN 13 mg/dL (6-20) 11/23/23 23:50 Creatinine 0.9 mg/dL (0.7-1.2) 11/23/23 23:50 GFR Calculation 89.3 mL/min (90-130) L 11/23/23 23:50 Glucose 127 mg/dL (65-115) H 11/23/23 23:50 Calculated Osmolality 288 mOsm/kg (285-295) 11/23/23 23:50 Lactic Acid 1.1 mmol/L (0.5-2.2) 11/23/23 23:50 Calcium 9.4 mg/dL (8.5-10.5) 11/23/23 23:50 Total Bilirubin 1.6 mg/dL (0.15-1.2) H 11/23/23 23:50 AST 87 U/L (0-40) H 11/23/23 23:50 ALT 122 U/L (0-41) H 11/23/23 23:50 Alkaline Phosphatase 118 U/L (40-130) 11/23/23 23:50 Total Protein 7.6 g/dL (6.6-8.7) 11/23/23 23:50 Albumin 4.3 g/dL (3.5-5.2) 11/23/23 23:50 Globulin 3.3 g/dL (1.3-4.6) 11/23/23 23:50 Lipase 435 U/L (13-60) H 11/23/23 23:50 Procalcitonin 0.30 ng/mL (0-0.5) 11/23/23 23:50 Urine Color Yellow (Yellow) 11/24/23 12:17 Urine Appearance Clear (CLEAR) 11/24/23 12:17 Urine pH 5 (5-7) 11/24/23 12:17 Ur Specific [place] 1.020 (1.005-1.030) 11/24/23 12:17 Urine Protein 1+ (Negative) H 11/24/23 12:17 Urine Glucose (UA) Norm (Normal) 11/24/23 12:17 Urine Ketones 2+ (Negative) H 11/24/23 12:17 Urine Blood Neg (Negative) 11/24/23 12:17 Urine Nitrate Negative (Negative) 11/24/23 12:17 Urine Bilirubin 1+ (Negative) H 11/24/23 12:17 Urine Urobilinogen 1 mg/dL (Negative) H 11/24/23 12:17 Ur Leukocyte Esterase Negative (Negative) 11/24/23 12:17 Urine RBC 0-4 /hpf (0-2) H 11/24/23 12:17 Urine WBC None /hpf (0-5) 11/24/23 12:17 Ur Squamous Epith Cells None /hpf (0-5) 11/24/23 12:17 Amorphous Sediment Not Reportable 11/24/23 12:17 Urine Bacteria None /hpf (NONE) 11/24/23 12:17 Urine Mucus Trace /hpf 11/24/23 12:17 Discharge Plan Discharge Patient Disposition: Xfer Short-Term Hosp Clinical Impression: Cholelithiasis, Acute pancreatitis, Acute cholecystitis Condition: Stable Prescriptions: No Action flecainide 50 mg tablet See Rx Instructions .ROUTE .COMPLEX Rx Instructions: Take 2 tabs po with an episode and may repeat 1 tab 30-60 min later as needed metoprolol tartrate 25 mg tablet See Rx Instructions .ROUTE .COMPLEX Rx Instructions: Take 1/2 tab (12.5mg) to 1 tab (25mg) by mouth as needed for HR>100 bpm Referrals: Luke Rao MD [Primary Care Provider] - Coding Level of Care Code ED Science Teacher for Chg Cheryl
[2023-11-24] MEDS: ketorolac 30 mg/mL INJ IVP (01:28)
[2023-11-24] MEDS: ondansetron 2 mg/ML SDV 2 mL 4 MG IVP (03:20)
[2023-11-24] MEDS: HYDROmorphone 1 mg/mL INJ 1 mL IVP ×6 (03:21→18:25)
--- NOTE | 2023-11-24 03:39 | MR_ITS ---
WS: [id number] MRCP (MAGNETIC RESONANCE CHOLANGIOPANCREATOGRAPHY) HISTORY: Cholelithiasis, cholecystitis, right upper quadrant and epig COMPARISON: 11/24/2023 CT and ultrasound TECHNIQUE: Multiple sequences are performed to evaluate the intra and extrahepatic ducts. Gallbladder well distended. There are numerous stones within the gallbladder. No significant amount o f gallbladder wall thickening or edema. Common bile duct is dilated to 10 mm. There are small filling defects in the distal common bile duct near the pancreatic head. At least 4 small stones are identif ied. Moderate amount of fluid surrounding the pancreas extending around the pancreatic head/duodenum and a nd also along the pararenal fascia. Fluid extends into the LEFT abdomen and the pancreas. There is no focal fluid collection. No stones are identified in the duodenum. No liver mass or intrahepatic duct dilatation. Normal adren al glands. Negative kidneys. IMPRESSION: 1. Choledocholithiasis. Common bile duct is dilated to 10 mm and there are small stones within the c ommon bile duct. 2. Cholelithiasis. Numerous stones are present in the gallbladder. 3. Pancreatitis. Moderate amount of fluid surrounds the pancreas and extending to involve the duoden al C-loop.
[2023-11-24] MEDS: piperacillin-tazobactam 3.375 GM in sodium chloride 0.9% (plus) 50 ML IV (05:01)
[2023-11-24] MEDS: lactated ringers 1,000 ML 125 ML IV ×2 (05:01→13:30)
--- NOTE | 2023-11-24 07:25 | PC.PHAR ---
pt states he only has prn medications he takes-pt states not taken in a while-ext doesnt show when filled last-pt states takes no otc medications
[2023-11-24 12:32] LABS: Add Urine Microscopic? YES; Bilirubin Urine 1+ (Negative); Blood Urine Neg (Negative); Glucose Urine UA Norm (Normal); Ketones Urine 2+ (Negative); Leukocyte Esterase Urine Negative (Negative); Nitrate Urine Negative (Negative); Protein Urine 1+ (Negative); Urine Appearance Clear (CLEAR); Urine Color Yellow (Yellow); Urobilinogen Urine 1 mg/dL (Negative); pH Urine 5 (5-7)
[2023-11-24 12:49] LABS: Add Urine Culture? No; Mucus Urine TRACE /hpf; RBC Urine 0-4 /hpf (0-2)
== END 2023-11-24 18:47 | disposition short-term general hospital (02) ==
PROVIDERS: Emergency Medicine; Emergency Provider Internal Medicine; PCP Family Medicine
DX: K85.90 Acute pancreatitis without necrosis or infection, unspecified (principal); K80.00 Calculus of gallbladder with acute cholecystitis without obstruction; F17.220 Nicotine dependence, chewing tobacco, uncomplicated
CPT/HCPCS: 36415; 74177; 74181; 76705; 80053; 81001; 83605; 83690; 84145; 85025; 96365; 96375; 96376; 99285; J1170; J1885; J2270; J2405; J2543; J7030; J7120; Q9967